=== PATIENT | female | born 1995 | race Caucasian/White ===

== ENCOUNTER 2016-11-03 11:03 | Day surgery (SDC) | payer BC, OTHER ==
--- NOTE | 2016-10-31 07:48 | HP ---
DATE OF SURGERY: 11/03/2016 ADMISSION DIAGNOSIS: Undesired fertility. ANTICIPATED PROCEDURE: Tubal ligation. HISTORY OF PRESENT ILLNESS: The patient is a 1, para 1, 21 year-old, four years since delivery and desires to not have any additional children at this time. She is very certain. A diagram concerning the procedure burning out a 2 cm distance in the distal tube of both left and right was discussed with her. Risk of recanalization 1 out of 200, 1 out of 300. PAST MEDICAL HISTORY: ALLERGIES: NONE. MEDICATIONS: Lexapro, Tetracycline. SOCIAL HISTORY: Half pack per day. ETOH occasionally. FAMILY HISTORY: Negative. REVIEW OF SYSTEMS: Negative. PHYSICAL EXAMINATION: VITAL SIGNS: Normal. CHEST: Clear. COR: Regular. ABDOMEN: No palpable organomegaly or mass. IMPRESSION: Undesired fertility. PLAN: Tubal ligation.
[~2016-11-03 11:03] MED LIST: BICITRA 30 ML CUP PO ONE; CEFAZOLIN 2 GM-D5W BAG** 50 ML IV SCH; Lactated Ringers 1,000 ML IV ONE; Lactated Ringers 1,000 ML IV SCH; Pepcid 20 MG VIAL IV ONE; Sensorcaine 0.25% 10 ML ONE
[2016-11-03] MEDS ORDERED: CEFAZOLIN 2 GM-D5W BAG** 50 ML IV ONE (11:25)
[2016-11-03] MEDS ORDERED: Lactated Ringers 1,000 ML IV ONE (11:25)
[2016-11-03] MEDS ORDERED: BICITRA 30 ML CUP ONE (11:25)
[2016-11-03] MEDS ORDERED: Pepcid 20 MG VIAL IV ONE (11:25)
[2016-11-03] MEDS ORDERED: Decadron 4 MG INJ IV ONE (14:03)
[2016-11-03] MEDS ORDERED: Zemuron 100 MG/10 ML IJ ONE (14:03)
[2016-11-03] MEDS ORDERED: DIPRIVAN 200 MG/20 ML IV ONE (14:03)
[2016-11-03] MEDS ORDERED: BLOXIVERZ IV ONE (14:03)
[2016-11-03] MEDS ORDERED: TORAdol 30 mg Injection IJ ONE (14:03)
[2016-11-03] MEDS ORDERED: SUBLIMAZE 100 MCG/2 ML IV ONE (14:03)
[2016-11-03] MEDS ORDERED: Quelicin Fliptop 200 MG/10 ML IJ ONE (14:03)
[2016-11-03] MEDS ORDERED: Robinul 0.4 MG/2 ML IV ONE (14:03)
[2016-11-03] MEDS ORDERED: DILAUDID 2 MG INJECTION IJ ONE (14:03)
[2016-11-03] MEDS ORDERED: Zofran 4 MG/2 ML VIAL IV ONE (14:03)
[2016-11-03] MEDS ORDERED: DILAUDID 2 MG INJECTION ONE (14:16)
[2016-11-03] MEDS ORDERED: TORAdol 30 mg Injection IV ONE (15:25)
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
[2016-11-03 16:02] VITALS: BP 100/69; PULSE 55; O2SAT 97
== END 2016-11-03 15:55 | disposition home or self-care (01) ==
LOC: SDC 11:03
PROVIDERS: ATTEND Surgery
PROC: 0UL74ZZ Occlusion of Bilateral Fallopian Tubes, Percutaneous Endoscopic Approach (ICD-10-PCS; principal; 2016-11-03)
DX: Z30.2 Encounter for sterilization (principal)
CPT/HCPCS: 00851; 84703; J0330; J0690; J1100; J1170; J1885; J2405; J2704; J2710; J3010

== ENCOUNTER 2016-11-05 19:24 | Emergency (ER) | payer BC, OTHER ==
[2016-11-05 19:56] VITALS: BP 102/66; PULSE 98; O2SAT 99
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
== END 2016-11-05 20:29 | disposition home or self-care (01) ==
LOC: ED 19:24
DX: Z48.01 Encounter for change or removal of surgical wound dressing (principal)
CPT/HCPCS: 99282

== ENCOUNTER 2017-07-12 18:05 | Emergency (ER) | payer BC ==
[2017-07-12 19:19] VITALS: BP 112/76; PULSE 96
[2017-07-12] MEDS ORDERED: Rocephin 1000 MG INJ IM ONE (20:20)
[2017-07-12] MEDS ORDERED: Rocephin 1000 MG INJ ONE (20:23)
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
[2017-07-12] MEDS ORDERED: SILVADENE 50 GM TP ONE ×2 (20:29→20:32)
[2017-07-12 20:42] VITALS: O2SAT 98
[2017-07-12] MEDS ORDERED: XYLOCAINE 1% HCL 20 ML MDV ONE (20:53)
== END 2017-07-12 20:43 ==
LOC: ED 18:05
DX: T24.112A Burn of first degree of left thigh, initial encounter (principal); T22.212A Burn of second degree of left forearm, initial encounter; T22.111A Burn of first degree of right forearm, initial encounter; X08.8XXA Exposure to other specified smoke, fire and flames, initial encounter
CPT/HCPCS: J0696; A9270-GY

== ENCOUNTER 2017-11-13 18:23 | Emergency (ER) | payer BC ==
[2017-11-13 18:45] VITALS: BP 131/75; PULSE 88; O2SAT 99
[2017-11-13] MEDS ORDERED: BACIGUENT PACKET ONE (19:07)
[2017-11-13] MEDS ORDERED: NORCO 5/325 MG ONE (19:08)
[2017-11-13] MEDS ORDERED: Adacel Vial IM ONE (19:08)
[2017-11-13] MEDS: Adacel Vial IM ONE (19:13)
[2017-11-13] MEDS: NORCO 5/325 MG PO ONE (19:14)
[2017-11-13] MEDS: BACIGUENT PACKET TP ONE (19:14)
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
== END 2017-11-13 19:39 | disposition home or self-care (01) ==
LOC: ED 18:23
PROC: 0HQFXZZ Repair Right Hand Skin, External Approach (ICD-10-PCS; principal; 2017-11-13)
DX: S61.011A Laceration without foreign body of right thumb without damage to nail, initial encounter (principal); W26.0XXA Contact with knife, initial encounter; M19.90 Unspecified osteoarthritis, unspecified site; F41.8 Other specified anxiety disorders; R73.03 Prediabetes; F31.9 Bipolar disorder, unspecified; F20.9 Schizophrenia, unspecified; Z72.0 Tobacco use
CPT/HCPCS: 12001; 90471; 90715; 99283; A9270-GY

== ENCOUNTER 2018-01-03 17:53 | Emergency (ER) | payer BC ==
[2018-01-03 18:07] VITALS: BP 118/73; PULSE 69; O2SAT 99
[2018-01-03] MEDS ORDERED: NORCO 5/325 MG PO ONE (18:08)
[2018-01-03] MEDS ORDERED: CLEOCIN 150 MG CAPSULE PO ONE (18:08)
[2018-01-03] MEDS ORDERED: CLEOCIN 150 MG CAPSULE ONE (18:11)
[2018-01-03] MEDS ORDERED: NORCO 5/325 MG ONE (18:11)
--- NOTE | 2018-01-03 18:13 | ERPHSYRPT ---
- History of Present Illness Time Seen by Provider: 01/03/18 18:09 Source: patient Exam Limitations: no limitations Patient Subjective Stated Complaint: pt here for infection to right hand after getting a tatoo to 3,4,5 digit , pt has open sores with small amt of draining Triage Nursing Assessment: pt alert, resp easy, skin w/d/p, pt has sores to right 3,4,5,digit Physician History: mild to mod constant ache pain at tatoo sites of the right hand since last week , pt utd, no allergy to norco, pt is right handed, +ulcers, no bleeding or drainage Allergies/Adverse Reactions: morphine Allergy (Verified 01/03/18 18:07) Penicillins Allergy (Verified 01/03/18 18:07) tramadol Allergy (Verified 01/03/18 18:07) Home Medications: Sertraline HCl [Sertraline HCl] 200 mg DAILY 11/13/17 [History] Hx Tetanus, Diphtheria Vaccination/Date Given: Yes Hx Influenza Vaccination/Date Given: No Hx Pneumococcal Vaccination/Date Given: No Immunizations Up to Date: Yes - Review of Systems Constitutional: No Fever Respiratory: No Dyspnea Neurological: No Dizziness - Past Medical History Pertinent Past Medical History: Yes Neurological History: Migraines Cardiac History: No Pertinent History Respiratory History: No Pertinent History Endocrine Medical History: Other Musculoskeletal History: Arthritis Psycho-Social History: Anxiety, Depression, Panic Disorder Other Medical History: PCOS, boarderline DM, bipolar,schizo - Past Surgical History Past Surgical History: No Female Surgical History: Tubal Ligation Other Surgical History: no surgery - Social History Smoking Status: Current every day smoker How long have you smoked: 6 Exposure to second hand smoke: Yes Drug Use: none Patient Lives Alone: No - Female History Hx Last Menstrual Period: nov Hx Now: No - Nursing Vital Signs Nursing Vital Signs: Initial Vital Signs Temperature 97.8 F 01/03/18 18:00 Pulse Rate 69 01/03/18 18:00 Respiratory Rate 20 01/03/18 18:00 Blood Pressure 118/73 01/03/18 18:00 O2 Sat by Pulse Oximetry 99 01/03/18 18:00 Pain Scale Pain Intensity 8 - Physical Exam General Appearance: no apparent distress Respiratory Exam: No respiratory distress Extremity Exam: other (tender shallow 1cm ulcers of dorsal mid phalanx digits 3 4 and 5 or the right hand, rom intact, apparent extension deformity, no streaks , sen and pulses intact) Neurologic Exam: alert, oriented x 3, cooperative Skin Exam: warm SpO2 Interpretation: normal SpO2: 99 Oxygen Delivery: Room Air - Course Nursing assessment & vital signs reviewed: Yes - Radiology Exams Hand X-ray Interpretation: Interpreted by me, Other (no fx, no osteo) Ordered Tests: Active Orders 24 hr Category Date Time Status HAND (MINIMUM 3 VIEWS) Stat Exams 01/03/18 18:28 Taken CBC W DIFF Stat Lab 01/03/18 18:25 Completed Medication Summary Discontinued Medications Generic Name Dose Route Start Last Admin Trade Name Freq PRN Reason Stop Dose Admin Hydrocodone Bitart/Acetaminophen 1 tab 01/03/18 18:08 01/03/18 18:12 [place] 5/325 Mg PO 01/03/18 18:09 1 tab STAT ONE Administration Hydrocodone Bitart/Acetaminophen Confirm 01/03/18 18:11 [place] 5/325 Mg Administered 01/03/18 18:12 Dose 1 tab .ROUTE .STK-MED ONE Clindamycin HCl 300 mg 01/03/18 18:08 01/03/18 18:12 [place] 150 Mg Capsule PO 01/03/18 18:09 300 mg STAT ONE Administration Clindamycin HCl Confirm 01/03/18 18:11 Cleocin 150 Mg Capsule Administered 01/03/18 18:12 Dose 300 mg .ROUTE .STK-MED ONE Lab/Rad Data: Laboratory Result Diagrams 01/03/18 18:25 Laboratory Results 01/03/18 Range/Units 18:25 WBC 5.2 (4.0-10.5) K/mm3 RBC 3.78 L (4.1-5.4) M/mm3 Hgb 12.3 (12.0-16.0) gm/dl Hct 37.6 (35-47) % MCV 99.5 (78-100) fl MCH 32.5 H (26-32) pg MCHC 32.7 (32-36) g/dl RDW 12.6 (11.5-14.0) % Plt Count 211 (150-450) K/mm3 MPV 9.1 (6-9.5) fl Gran % 53.6 (36.0-66.0) % Lymphocytes % 29.8 (24.0-44.0) % Monocytes % 12.0 (0.0-12.0) % Eosinophils % 4.4 (0.00-5.0) % Basophils % 0.2 (0.0-0.4) % Basophils # 0.01 (0-0.4) - Progress Progress: improved Progress Note: 01/03/18 18:[address] Zimmerman at 19:00 01/03/18 18:[address] Urvashi ortiz warnings given wound care zakia Will see patient in: office Counseled pt/family regarding: lab results, diagnosis, need for follow-up, rad results - Departure Time of Disposition: 18:44 Departure Disposition: Home Clinical Impression: Skin ulcer Qualifiers: Non-pressure ulcer stage: limited to breakdown of skin Qualified Code(s): L98.491 - Non-pressure chronic ulcer of skin of other sites limited to breakdown of skin Condition: Stable Critical Care Time: No Referrals: GAETANO CHOPRA NP [Primary Care Provider] - Additional Instructions: see Dr Urvashi ortiz return if worse Prescriptions: Clindamycin HCl 300 mg PO TID 10 Days #30 capsule Hydrocodone/APAP 5/325 [[place] 5/325 mg] 1 each PO Q4-6HPRN PRN #20 tablet MDD 3 PRN Reason: Pain
[2018-01-03 18:28] LABS: BASOPHIL % 0.2 % (0.0-0.4); Basophil (Absolute #) 0.01 (0-0.4); Eosinophil % 4.4 % (0.00-5.0); Eosinophil (Absolute #) 0.23 (0-0.5); Granulocyte Absolute (ANC) 2.81 (1.4-6.9); Granulocytes % 53.6 % (36.0-66.0); Hematocrit 37.6 % (35-47); Hemoglobin 12.3 gm/dl (12.0-16.0); Lymphocyte (Absolute #) 1.56 (1.0-4.6); Lymphocytes % 29.8 % (24.0-44.0); Mean Cell Volume 99.5 fl (78-100); Mean Corpuscular Hemoglobin 32.5 pg (26-32); Mean Corpuscular Hgb Concent. 32.7 g/dl (32-36); Mean Platelet Volume 9.1 fl (6-9.5); Monocyte (Absolute #) 0.63 (0.0-1.3); Platelet Count 211 K/mm3 (150-450); Red Blood Count 3.78 M/mm3 (4.1-5.4); Red Cell Distribution Width 12.6 % (11.5-14.0); White Blood Count 5.2 K/mm3 (4.0-10.5)
[2018-01-03] MEDS ORDERED: BACIGUENT PACKET ONE (19:12)
[2018-01-04] MEDS ORDERED: BACIGUENT PACKET TP ONE (07:11)
--- NOTE | 2018-01-04 08:36 | XRAY ---
Indication: 3/4/5 phalangeal pain. Comparison: None 3 views of the right hand demonstrates widening of the scaphoid lunate interval concerning for underlying ligamentous tear. No other bony, articular, or soft tissue abnormalities.
== END 2018-01-03 19:29 | disposition home or self-care (01) ==
LOC: ED 17:53
DX: L98.491 Non-pressure chronic ulcer of skin of other sites limited to breakdown of skin (principal)
CPT/HCPCS: 36415; 73130; 85025; 99284; A9270-GY

== ENCOUNTER 2018-08-01 16:59 | Emergency (ER) | payer BC, OTHER ==
[2018-08-01 17:19] VITALS: BP 105/73
[2018-08-01] MEDS ORDERED: Zithromax 250 MG TABLET PO ONE (17:29)
--- NOTE | 2018-08-01 17:35 | ERPHSYRPT ---
- History of Present Illness Time Seen by Provider: 08/01/18 17:15 Source: patient Exam Limitations: clinical condition Patient Subjective Stated Complaint: right ear and right side of throat hurts Triage Nursing Assessment: pt c/o of pain in right ear and right side of throat , hurts to swallow, swollen on the right side of throat, T 99.0, denies any other issues at this time Physician History: PATIENT COMPLAINS OF SORETHROAT, RIGHT FACIAL PAIN AND EARACHE WITH SWOLLEN GLANDS RIGHT SIDE OF NECK SINCE EARLIER THIS MORNING. DENIES FEVER, COUGH, DIFFICULTY BREATHING OR SWALLOWING. Timing/Duration: today Possible Cause: occasional episodes Modifying Factors: Improves With: nothing Associated Symptoms: earache, facial pain International travel in last 2 weeks: No Allergies/Adverse Reactions: morphine Allergy (Verified 08/01/18 17:19) Penicillins Allergy (Verified 08/01/18 17:19) tramadol Allergy (Verified 08/01/18 17:19) Home Medications: Sertraline HCl 200 mg PO DAILY 11/13/17 [History] Hx Tetanus, Diphtheria Vaccination/Date Given: Yes Hx Influenza Vaccination/Date Given: No Hx Pneumococcal Vaccination/Date Given: No - Review of Systems Constitutional: No Fever, No Chills Eyes: No Symptoms Ears, Nose, & Throat: Ear Pain, Throat Pain Respiratory: No Symptoms, No Cough, No Dyspnea Cardiac: No Symptoms, No Chest Pain, No Edema, No Syncope Abdominal/Gastrointestinal: No Symptoms, No Abdominal Pain, No Nausea, No Vomiting, No Diarrhea Genitourinary Symptoms: No Symptoms, No Dysuria Musculoskeletal: No Back Pain, No Neck Pain Skin: No Rash Neurological: No Dizziness, No Focal Weakness, No Sensory Changes Psychological: No Symptoms Endocrine: No Symptoms All Other Systems: Reviewed and Negative - Past Medical History Pertinent Past Medical History: Yes Neurological History: Migraines Cardiac History: No Pertinent History Respiratory History: No Pertinent History Endocrine Medical History: Other Musculoskeletal History: Arthritis Psycho-Social History: Anxiety, Depression, Panic Disorder Other Medical History: PCOS, boarderline DM, bipolar,schizo - Past Surgical History Past Surgical History: No Female Surgical History: Tubal Ligation Other Surgical History: no surgery - Social History Smoking Status: Current every day smoker How long have you smoked: 6 Exposure to second hand smoke: Yes Drug Use: none Patient Lives Alone: No - Female History Hx Last Menstrual Period: 07/20/2018 Hx Now: (tubal) - Nursing Vital Signs Nursing Vital Signs: Initial Vital Signs Temperature 99.0 F 08/01/18 17:07 Pulse Rate 90 08/01/18 17:07 Blood Pressure 105/73 08/01/18 17:07 O2 Sat by Pulse Oximetry 97 08/01/18 17:07 Pain Scale Pain Intensity 5 - Physical Exam General Appearance: no apparent distress, alert Eye Exam: PERRL/EOMI, eyes nml inspection Ears, Nose, Throat Exam: normal ENT inspection, TMs normal, pharynx normal, moist mucous membranes, TM abnormal (R), pharyngeal erythema Neck Exam: normal inspection, non-tender, supple, full range of motion Respiratory Exam: normal breath sounds, lungs clear, No respiratory distress Cardiovascular Exam: regular rate/rhythm, normal heart sounds Gastrointestinal/Abdomen Exam: No tenderness Back Exam: normal inspection, No CVA tenderness, No vertebral tenderness Extremity Exam: normal inspection, normal range of motion Neurologic Exam: alert, oriented x 3, cooperative, normal mood/affect, sensation nml, No motor deficits Skin Exam: normal color, warm, dry, No rash Lymphatic Exam: No adenopathy SpO2 Interpretation: normal SpO2: 97 Oxygen Delivery: Room Air Ordered Tests: Medication Summary Discontinued Medications Generic Name Dose Route Start Last Admin Trade Name Charlene PRN Reason Stop Dose Admin Azithromycin 500 mg 08/01/18 17:29 08/01/18 17:36 Zithromax 250 Mg Tablet PO 08/01/18 17:30 500 mg STAT ONE Administration Azithromycin Confirm 08/01/18 17:36 Zithromax 250 Mg Tablet Administered 08/01/18 17:37 Dose 500 mg .ROUTE .STK-MED ONE Lab/Rad Data: Laboratory Results 08/01/18 Range/Units 17:45 Group A Strep Antibody NEGATIVE (NEGATIVE) - Progress Progress Note: 08/01/18 18:15 ZITHROMAX 500MG ORALLY Counseled pt/family regarding: lab results, diagnosis, need for follow-up - Departure Time of Disposition: 18:20 Departure Disposition: Home Clinical Impression: ACUTE SINUSITIS, RIGHT OTITIS MEDIA Condition: Stable Critical Care Time: No Referrals: GAETANO CHOPRA NP [Primary Care Provider] - Additional Instructions: DRINK PLENTY OF FLUIDS. ANTIBIOTIC ZITHROMAX 250MG, 2 TABLETS DAY 1 THEN 1 TABLET DAILY FOR 4 DAYS. PERCOGESIC 1 TABLET EVERY 4-6 HOURS FOR PAIN. TAKE OVER THE COUNTER SALINE SPRAY EVERY 6 HOURS NEEDED. CONSULT YOUR PRIMARY CARE PROVIDER FOR FOLLOWUP IN 1 WEEK. Prescriptions: Acetaminophen/Diphenhydramine [Percogesic Extra Str Caplet] 1 each PO Q4-6HPRN PRN #14 tablet PRN Reason: Pain Azithromycin 250 mg [Zithromax 250 MG TABLET] 250 mg PO ZPACK #6 tablet
[2018-08-01] MEDS ORDERED: Zithromax 250 MG TABLET ONE (17:36)
[2018-08-01 17:57] VITALS: PULSE 81
[2018-08-01 18:21] VITALS: O2SAT 97
== END 2018-08-01 18:27 | disposition home or self-care (01) ==
LOC: ED 16:59
DX: J01.90 Acute sinusitis, unspecified (principal); H66.91 Otitis media, unspecified, right ear; M19.90 Unspecified osteoarthritis, unspecified site; E11.9 Type 2 diabetes mellitus without complications; F31.9 Bipolar disorder, unspecified; Z72.0 Tobacco use
CPT/HCPCS: 87651; 99283; A9270-GY

== ENCOUNTER 2018-09-25 11:26 | Emergency (ER) | payer BC, OTHER ==
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
[2018-09-25 11:49] VITALS: BP 112/70; PULSE 74; O2SAT 97
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
== END 2018-09-25 13:11 | disposition home or self-care (01) ==
LOC: ED 11:26
DX: S60.221A Contusion of right hand, initial encounter (principal); S63.91XA Sprain of unspecified part of right wrist and hand, initial encounter; W22.8XXA Striking against or struck by other objects, initial encounter; Y93.89 Activity, other specified
CPT/HCPCS: 73130; 99283

== ENCOUNTER 2019-06-02 07:42 | Emergency (ER) | payer BC ==
[2019-06-02 08:00] VITALS: O2SAT 97
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
[2019-06-02 09:27] VITALS: BP 98/69; PULSE 64
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
== END 2019-06-02 09:28 | disposition home or self-care (01) ==
LOC: ED 07:42
DX: S60.221A Contusion of right hand, initial encounter (principal); Y04.0XXA Assault by unarmed brawl or fight, initial encounter; Y93.9 Activity, unspecified
CPT/HCPCS: 73110; 73130; 99284

== ENCOUNTER 2019-06-24 17:14 | Emergency (ER) | payer BC ==
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
[2019-06-24] MEDS ORDERED: Zofran 4 MG/2 ML VIAL IV ONE (18:19)
[2019-06-24] MEDS ORDERED: DEMEROL 50 MG IV ONE (18:21)
[2019-06-24] MEDS ORDERED: Aldactone 25 MG PO ONE (18:22)
[2019-06-24 18:33] LABS: BASOPHIL % 0.1 % (0.0-0.4); Basophil (Absolute #) 0.01 (0-0.4); Eosinophil % 2.9 % (0.00-5.0); Eosinophil (Absolute #) 0.24 (0-0.5); Granulocyte Absolute (ANC) 4.72 (1.4-6.9); Granulocytes % 56.9 % (36.0-66.0); Hematocrit 37.4 % (35-47); Hemoglobin 12.8 gm/dl (12.0-16.0); Lymphocyte (Absolute #) 2.53 (1.0-4.6); Lymphocytes % 30.4 % (24.0-44.0); Mean Cell Volume 95.4 fl (78-100); Mean Corpuscular Hgb Concent. 34.2 g/dl (32-36); Mean Platelet Volume 9.4 fl (6-9.5); Monocyte (Absolute #) 0.81 (0.0-1.3); Monocytes % 9.7 % (0.0-12.0); Platelet Count 254 K/mm3 (150-450); Red Blood Count 3.92 M/mm3 (4.1-5.4); Red Cell Distribution Width 12.4 % (11.5-14.0); White Blood Count 8.3 K/mm3 (4.0-10.5)
[2019-06-24 18:35] VITALS: O2SAT 99
[2019-06-24] MEDS ORDERED: Zofran 4 MG/2 ML VIAL ONE (18:35)
[2019-06-24] MEDS ORDERED: DEMEROL 50 MG ONE (18:36)
[2019-06-24 18:38] LABS: Mean Corpuscular Hemoglobin 32.6 pg (26-32)
[2019-06-24 18:43] LABS: BLOOD UREA NITROGEN 12 mg/dL (7-17); CHLORIDE 107 mmol/L (98-107); Calcium 9.5 mg/dL (8.4-10.2); Carbon Dioxide 27 mmol/L (22-30); Creatinine 1 0.71 mg/dL (0.52-1.04); Glucose 76 mg/dL (74-106); Potassium 3.5 mmol/L (3.5-5.1); SODIUM 142 mmol/L (137-145)
[2019-06-24 20:48] LABS: Appearance CLOUDY (CLEAR); Bacteria MANY /HPF (NEGATIVE); Bilirubin NEGATIVE (NEGATIVE); Blood NEGATIVE Ery/ul (0-5); Epithelial Cells FEW /HPF (FEW); Glucose NEGATIVE (NEGATIVE); Ketones NEGATIVE (NEGATIVE); Leukocyte Esterase NEGATIVE (NEGATIVE); Mucus SLIGHT /HPF (NEGATIVE); Nitrite NEGATIVE (NEGATIVE); Protein,Urine Dip NEGATIVE (Negative); Specific Gravity 1.021 (1.005-1.025); Urobilinogen NEGATIVE mg/dL (0-1)
[2019-06-24] MEDS ORDERED: PERCOCET TABLET 5/325MG PO STA (21:02)
[2019-06-24] MEDS ORDERED: PERCOCET TABLET 5/325MG ONE (21:11)
[2019-06-24 21:17] VITALS: BP 107/65; PULSE 72
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
== END 2019-06-24 21:28 | disposition home or self-care (01) ==
LOC: ED 17:14
DX: T14.8XXA Other injury of unspecified body region, initial encounter (principal); V89.2XXA Person injured in unspecified motor-vehicle accident, traffic, initial encounter
CPT/HCPCS: 36000; 36415; 70450; 70486; 72192; 80048; 81001; 85025; 87086; 93005; 93041; 96374; 96375; 99284; J2175; J2405; A9270-GY

== ENCOUNTER 2019-09-06 22:30 | Emergency (ER) | payer BC ==
[2019-09-06 22:58] VITALS: BP 108/85; PULSE 91; O2SAT 97
[2019-09-06] MEDS ORDERED: TORAdol 30 mg Injection IM ONE (23:16)
[2019-09-06] MEDS ORDERED: BACTRIM DS TABLET PO STA (23:17)
--- NOTE | 2019-09-06 23:25 | ERPHSYRPT ---
- History of Present Illness Time Seen by Provider: 09/06/19 22:58 Source: patient Exam Limitations: no limitations Patient Subjective Stated Complaint: pt states that she has mass in her vagina, pt states that mass came 4 days ago, pt states that she can not sit or walk Triage Nursing Assessment: pt ambulated into the er, pt has 6/10 pain to vagina , no drainage present, abcess is located on rt side of vagina, mass is 4 cm x2 cm Physician History: 89 years old female presenting in the ER with chief complaint of right labial swelling for the last 4 days progressively worsening currently almost an almond size, moderate intensity sharp pain aggravation with walking/sitting/palpation. Denies any discharge. She has tried to squeeze it with no discharge at all. Denies any redness. No history of MRSA. Timing/Duration: day(s) (4) Quality: painful Severity: moderate Location: genitalia Possible Causes: no cause identified Associated Symptoms: swelling/mass/lumps Allergies/Adverse Reactions: morphine Allergy (Verified 09/06/19 22:58) Penicillins Allergy (Verified 09/06/19 22:58) tramadol Allergy (Verified 09/06/19 22:58) Home Medications: Paroxetine HCl 20 mg [Paxil 20 MG] 20 mg PO DAILY 06/02/19 [History] Phentermine HCl [Adipex-P] 37.5 mg PO DAILY 06/02/19 [History] Spironolactone 100 mg PO DAILY 06/02/19 [History] Hx Tetanus, Diphtheria Vaccination/Date Given: No Hx Influenza Vaccination/Date Given: No Hx Pneumococcal Vaccination/Date Given: No - Review of Systems Constitutional: No Symptoms, No Fever, No Chills Eyes: No Symptoms Respiratory: No Symptoms Cardiac: No Symptoms Abdominal/Gastrointestinal: No Symptoms Genitourinary Symptoms: No Incontinence, No Urgency, No Urinary Retention Musculoskeletal: No Symptoms Skin: No Symptoms, Skin Lesions Neurological: No Symptoms Psychological: No Symptoms Endocrine: No Symptoms - Past Medical History Pertinent Past Medical History: Yes Neurological History: No Pertinent History Cardiac History: No Pertinent History Respiratory History: No Pertinent History Endocrine Medical History: Other Musculoskeletal History: Fractures Psycho-Social History: Bipolar, Depression, Panic Disorder Other Medical History: HPV, PCOS - Past Surgical History Past Surgical History: Yes Cardiac: No Pertinent History Respiratory: No Pertinent History Gastrointestinal: No Pertinent History Genitourinary: No Pertinent History Musculoskeletal: No Pertinent History Female Surgical History: Tubal Ligation Other Surgical History: no surgery - Social History Smoking Status: Current every day smoker How long have you smoked: 10 years Exposure to second hand smoke: Yes Drug Use: none Patient Lives Alone: No - Female History Hx Now: No - Nursing Vital Signs Nursing Vital Signs: Initial Vital Signs Temperature 97.8 F 09/06/19 22:38 Pulse Rate 91 H 09/06/19 22:38 Respiratory Rate 15 09/06/19 22:38 Blood Pressure 108/85 09/06/19 22:38 O2 Sat by Pulse Oximetry 97 09/06/19 22:38 Pain Scale Pain Intensity 6 - Physical Exam General Appearance: no apparent distress Eye Exam: eyes nml inspection Ears, Nose, Throat Exam: normal ENT inspection Neck Exam: normal inspection, non-tender, supple, full range of motion Respiratory Exam: normal breath sounds, lungs clear Cardiovascular Exam: regular rate/rhythm, normal heart sounds Gastrointestinal/Abdomen Exam: soft, normal bowel sounds (spell and a the in and is being and and cool this and date A. yesterday and and and he is in in PERRLA EOMI and I are in and a), No tenderness Pelvic Exam: other (right lower labia anterior swelling 2x2cm . tender , no fluctuation, minimal induration. no swelling inside the vaginal wall.), No adnexal mass (I.) Back Exam: normal inspection, normal range of motion Extremity Exam: normal inspection Neurologic Exam: alert, oriented x 3, cooperative Skin Exam: normal color SpO2 Interpretation: normal SpO2: 97 O2 Delivery: Room Air Ordered Tests: Medication Summary Discontinued Medications Generic Name Dose Route Start Last Admin Trade Name Dylonq PRN Reason Stop Dose Admin Ketorolac Tromethamine 60 mg 09/06/19 23:16 Toradol 30 Mg Injection IM 09/06/19 23:17 STAT ONE Ketorolac Tromethamine Confirm 09/06/19 23:28 Toradol 30 Mg Injection Administered 09/06/19 23:29 Dose 60 mg .ROUTE .STK-MED ONE Trimethoprim/Sulfamethoxazole 1 tab 09/06/19 23:17 Bactrim Ds Tablet PO 09/06/19 23:18 STAT STA Trimethoprim/Sulfamethoxazole Confirm 09/06/19 23:28 Bactrim Ds Tablet Administered 09/06/19 23:29 Dose 1 tab PO .STK-MED ONE - Progress Progress: pain not gone completely Progress Note: 09/06/19 23:33 patient is developing labial abscess. I do not think she needs incision and drainage at this point. I would start her on Bactrim and ibuprofen.. Recommended outpatient followup. Discussed signs and symptoms of worsening needing return to ER which she seems understanding. Counseled pt/family regarding: need for follow-up - Departure Departure Disposition: Home Clinical Impression: Labial abscess Condition: Stable Critical Care Time: No Referrals: GAETANO CHOPRA NP [Primary Care Provider] - Follow Up with PCP/3 days Instructions: Skin Abscess, MRSA (DC) Additional Instructions: take Tylenol/ibuprofen as needed for pain. continue with antibiotics. Followup with primary care physician for reevaluation in 2-3days. Return to ER for any worsening. Prescriptions: Ibuprofen 600 mg PO Q6HPRN PRN 10 Days #20 tablet PRN Reason: Pain Smz/Tmp Ds Tablet [Bactrim Ds Tablet] 1 udtab PO BID #14 tablet
[2019-09-06] MEDS ORDERED: BACTRIM DS TABLET PO ONE (23:28)
[2019-09-06] MEDS ORDERED: TORAdol 30 mg Injection ONE (23:28)
== END 2019-09-06 23:52 | disposition home or self-care (01) ==
LOC: ED 22:30
DX: N76.4 Abscess of vulva (principal)
CPT/HCPCS: 96372; 99283; J1885; A9270-GY

== ENCOUNTER 2019-10-11 14:05 | Emergency (ER) | payer BC ==
[2019-10-11 15:09] VITALS: O2SAT 100
[2019-10-11 17:32] LABS: INFLUENZA A POSITIVE (NEGATIVE); INFLUENZA B NEGATIVE (NEGATIVE); RESPIRATORY SYNCTIAL VIRUS NEGATIVE (Negative)
--- NOTE | 2019-10-11 17:57 | ERPHSYRPT ---
- History of Present Illness Time Seen by Provider: 10/11/19 15:00 Source: patient Patient Subjective Stated Complaint: pt reports sore throat, body aches, cough and fever, pt reports s/s started yesterday. Triage Nursing Assessment: pt is aox3, pupils perrl, afebrile, resps easy and non labored, radial pulses strong and equal, cap refill < 3 seconds, pt skin pink warm dry. 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 Associated Symptoms: cough, nausea/vomiting Allergies/Adverse Reactions: morphine Allergy (Verified 10/11/19 15:10) Penicillins Allergy (Verified 10/11/19 15:10) tramadol Allergy (Verified 10/11/19 15:10) Home Medications: Paroxetine HCl 20 mg [Paxil 20 MG] 20 mg PO DAILY 06/02/19 [History] Phentermine HCl [Adipex-P] 37.5 mg PO DAILY 06/02/19 [History] Spironolactone 100 mg PO DAILY 06/02/19 [History] Hx Tetanus, Diphtheria Vaccination/Date Given: Yes Hx Influenza Vaccination/Date Given: No Hx Pneumococcal Vaccination/Date Given: No Immunizations Up to Date: Yes - Review of Systems Constitutional: Fever, Chills Ears, Nose, & Throat: No Symptoms Respiratory: Cough Cardiac: No Chest Pain, No Edema, No Syncope Abdominal/Gastrointestinal: Nausea, Vomiting, Diarrhea Genitourinary Symptoms: No Dysuria Musculoskeletal: Arthralgias, Back Pain, Myalgias Neurological: No Dizziness, No Focal Weakness, No Sensory Changes Psychological: No Symptoms Endocrine: No Symptoms All Other Systems: Reviewed and Negative - Past Medical History Pertinent Past Medical History: Yes Neurological History: No Pertinent History Cardiac History: No Pertinent History Respiratory History: No Pertinent History Endocrine Medical History: Other Musculoskeletal History: Fractures Psycho-Social History: Bipolar, Depression, Panic Disorder Other Medical History: HPV, PCOS - Past Surgical History Past Surgical History: Yes Cardiac: No Pertinent History Respiratory: No Pertinent History Gastrointestinal: No Pertinent History Genitourinary: No Pertinent History Musculoskeletal: No Pertinent History Female Surgical History: Tubal Ligation Other Surgical History: no surgery - Social History Smoking Status: Current every day smoker How long have you smoked: 10 years Exposure to second hand smoke: Yes Drug Use: none Patient Lives Alone: No - Female History Hx Last Menstrual Period: mirena Hx Now: No (tubal) - Nursing Vital Signs Nursing Vital Signs: Initial Vital Signs Temperature 98.2 F 10/11/19 14:59 Pulse Rate 60 10/11/19 14:59 Respiratory Rate 20 10/11/19 14:59 Blood Pressure 105/75 10/11/19 14:59 O2 Sat by Pulse Oximetry 100 10/11/19 14:59 Pain Scale Pain Intensity 6 - Physical Exam General Appearance: moderate distress, alert Eye Exam: PERRL/EOMI ENT Exam: normal ENT inspection, No pharyngeal erythema, No tonsillar exudate Neck Exam: supple, full range of motion, No meningismus Respiratory Exam: normal breath sounds, lungs clear, no respiratory distress Cardiovascular/Chest Exam: normal heart sounds, regular rate/rhythm, No murmur, No edema Gastrointestinal/Abdominal Exam: soft, non tender, no distention Extremity Exam: non-tender, normal range of motion, normal inspection, normal capillary refill Neurologic Exam: alert, oriented x 3, 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, 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, normal mood/affect, sensation nml, No motor deficits Skin Exam: normal color, warm, dry, No rash SpO2: 100 - Course Nursing assessment & vital signs reviewed: Yes Lab/Rad Data: Laboratory Results 10/11/19 Range/Units Unknown Influenza Type A Ag POSITIVE (NEGATIVE) Influenza Type B Ag NEGATIVE (NEGATIVE) RSV (PCR) NEGATIVE (Negative) - Progress Progress: improved - Departure Departure Disposition: Home Clinical Impression: Influenza A Condition: Stable Critical Care Time: No Referrals: GAETANO CHOPRA NP [Primary Care Provider] - Prescriptions: Oseltamivir 75 mg [Tamiflu 75MG Capsule] 75 mg PO DAILY 5 Days #10 cap
[2019-10-11 18:20] VITALS: BP 102/67; PULSE 72
== END 2019-10-11 18:12 | disposition home or self-care (01) ==
LOC: ED 14:05
DX: J11.1 Influenza due to unidentified influenza virus with other respiratory manifestations (principal)
CPT/HCPCS: 87631; 99283

== ENCOUNTER 2019-10-12 21:27 | Emergency (ER) | payer BC ==
--- NOTE | 2019-10-12 22:11 | ERPHSYRPT ---
- History of Present Illness Time Seen by Provider: 10/12/19 21:55 Source: patient Exam Limitations: no limitations Patient Subjective Stated Complaint: pt to ER with complaints of body aches and sore mouth/throat since last night. pt states she was here 2 days ago and diagnosed with flu A. pt states she passed out in the shower today. Triage Nursing Assessment: pt to ER with complaints of body aches and sore mouth /throat since last night. pt with lightheaded/dizziness all day. Physician History: pT WITH MOUTH SO SORE THAT SHE CAN NOT TOLERATE EVEN WATER OR EAT A SUCRET. pT WAS DIAGNOSED WITH fLU a ON sep AND SHE STATES THAT HAS A HIGH PAIN TOLERANCE BUT CAN NOT TOLERATE ANYTHING IN HER MOUTH SINCE AND PASSED OUT YESTERDAY IN THE SHOWER BECAUSE SHE HASN'T BEEN ABLE TO EAT. Severity: severe ENT Location: mouth, throat Modifying Factors: Improves With: other (anything in the mouth caused pain) Associated Symptoms: dizziness, poor fluid intake, poor solids intake, sore throat, difficulty swallowing, other (mouth pain) Allergies/Adverse Reactions: morphine Allergy (Verified 10/12/19 21:41) Penicillins Allergy (Verified 10/12/19 21:41) tramadol Allergy (Verified 10/12/19 21:41) Home Medications: Paroxetine HCl 20 mg [Paxil 20 MG] 20 mg PO DAILY 06/02/19 [History] Phentermine HCl [Adipex-P] 37.5 mg PO DAILY 06/02/19 [History] Spironolactone 100 mg PO DAILY 06/02/19 [History] Hx Tetanus, Diphtheria Vaccination/Date Given: Yes Hx Influenza Vaccination/Date Given: No Hx Pneumococcal Vaccination/Date Given: No Immunizations Up to Date: Yes - Review of Systems Constitutional: Fever, Fatigue, Lethargy, Malaise Eyes: No Symptoms Ears, Nose, & Throat: Ear Pain, Nose Congestion, Mouth Pain, Throat Pain, Throat Swelling, Hoarse Respiratory: Cough Cardiac: No Symptoms Abdominal/Gastrointestinal: Nausea, Vomiting, Diarrhea Genitourinary Symptoms: No Symptoms Musculoskeletal: Arthralgias, Myalgias Skin: No Symptoms Neurological: Dizziness, Headache, Lethargy Psychological: No Symptoms Endocrine: No Symptoms Hematologic/Lymphatic: No Symptoms All Other Systems: Reviewed and Negative - Past Medical History Pertinent Past Medical History: Yes Neurological History: No Pertinent History Cardiac History: No Pertinent History Respiratory History: No Pertinent History Endocrine Medical History: Other Musculoskeletal History: Fractures Psycho-Social History: Bipolar, Depression, Panic Disorder Other Medical History: HPV, PCOS - Past Surgical History Past Surgical History: Yes Cardiac: No Pertinent History Respiratory: No Pertinent History Gastrointestinal: No Pertinent History Genitourinary: No Pertinent History Musculoskeletal: No Pertinent History Female Surgical History: Tubal Ligation Other Surgical History: no surgery - Social History Smoking Status: Current every day smoker How long have you smoked: 10 years Exposure to second hand smoke: Yes Drug Use: none Patient Lives Alone: No - Female History Hx Now: No - Nursing Vital Signs Nursing Vital Signs: Initial Vital Signs Temperature 97.5 F 10/12/19 21:35 Pulse Rate 80 10/12/19 21:35 Respiratory Rate 18 10/12/19 21:35 Blood Pressure 177/78 10/12/19 21:35 O2 Sat by Pulse Oximetry 98 10/12/19 21:35 Pain Scale Pain Intensity 7 - Physical Exam General Appearance: no apparent distress, alert Eye Exam: bilateral eye: normal inspection, PERRL, EOMI Ear Exam: bilateral ear: auricle normal, canal normal, TM normal Nasal Exam: normal inspection, No active bleeding, No discharge Throat Exam: normal, moist mucus membranes (Pt has some white palquing on the anterior portion of the upper pallet. And pt may have had slight mucousal sloughing of one layer of the buccal mucousa on the right jaw and some irritaion -mild under the tongue. 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, normal mood/affect, nml cerebellar function Skin Exam: normal color, warm, dry, No rash SpO2 Interpretation: normal SpO2: 98 O2 Delivery: Room Air - Course Nursing assessment & vital signs reviewed: Yes Ordered Tests: Medication Summary Discontinued Medications Generic Name Dose Route Start Last Admin Trade Name Freq PRN Reason Stop Dose Admin Lidocaine HCl 20 ml 10/12/19 22:12 10/12/19 23:29 Xylocaine Viscous 2% 20 Ml Cup PO 10/12/19 22:13 20 ml STAT ONE Administration Lidocaine HCl Confirm 10/12/19 23:07 Xylocaine Hcl Viscous * Administered 10/12/19 23:08 Dose 20 ml .ROUTE .STK-MED ONE Nystatin 5 ml 10/13/19 10:00 10/12/19 23:30 Nystatin Suspension 60 Ml PO 11/12/19 09:59 5 ml QID PRETTY Administration Nystatin Confirm 10/12/19 23:19 Nystatin Suspension 60 Ml Administered 10/12/19 23:20 Dose 60 ml PO .STK-MED ONE Sucralfate 1,000 mg 10/12/19 22:13 10/12/19 23:30 Carafate Suspension 1000 Mg/10 Ml PO 10/12/19 22:14 1,000 mg STAT ONE Administration Lab/Rad Data: Laboratory Results 10/12/19 Range/Units 22:40 Group A Strep Antibody NEGATIVE (NEGATIVE) - Progress Progress: improved Progress Note: 10/13/19 09:22 Strep test was negative and pt was treated with Carafate and lidocaine viscous and nystatin suspension. She was improved and asing to be discharged. She was discharged with nystatin and carafate. - Departure Departure Disposition: Home Clinical Impression: Influenza A, Thrush, oral Condition: Stable Critical Care Time: No Referrals: GAETANO CHOPRA NP [Primary Care Provider] - Instructions: Thrush, Flu, Adult (DC) Additional Instructions: Continue and complete Tamiflu and take the Nystatin prescribed as well as carafate to help sooth your mouth pain. You may also benefit from Sucrets lozenges or Chloraseptic spray or ice/ slushy or smoothy type drinks. You may take tylenol for pain or fever. Return to the ER with emergent medical problems. Try drinking after the meds have helped the pain a bit. Prescriptions: Nystatin 60 ml [Nystatin SUSPENSION 60 ML] 2.5 ml PO 5XD 10 Days #200 ml Sucralfate 1000 mg/10 ml [Carafate SUSPENSION 1000 MG/10 ML] 1,000 mg PO ACHS #480 ml
[2019-10-12] MEDS ORDERED: XYLOCAINE VISCOUS 2% 20 ML CUP PO ONE (22:12)
[2019-10-12] MEDS ORDERED: Carafate SUSPENSION 1000 MG/10 ML PO ONE (22:13)
[2019-10-12] MEDS ORDERED: XYLOCAINE HCl Viscous ONE (23:07)
[2019-10-12] MEDS ORDERED: Nystatin SUSPENSION 60 ML PO ONE (23:19)
[2019-10-13] VITALS: O2SAT 98
[2019-10-13 00:21] VITALS: BP 131/86; PULSE 83
[2019-10-13] MEDS ORDERED: Nystatin SUSPENSION 60 ML PO SCH (10:00)
== END 2019-10-13 00:52 | disposition home or self-care (01) ==
LOC: ED 21:27
DX: J10.1 Influenza due to other identified influenza virus with other respiratory manifestations (principal); B37.0 Candidal stomatitis
CPT/HCPCS: 87651; 99283; A9270-GY

== ENCOUNTER 2019-10-20 00:55 | Emergency (ER) | payer BC, MEDICAID ==
[2019-10-20 01:23] VITALS: BP 116/72
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
[2019-10-20 01:38] VITALS: PULSE 69; O2SAT 98
== END 2019-10-20 01:37 | disposition home or self-care (01) ==
LOC: ED 00:55
DX: S51.811A Laceration without foreign body of right forearm, initial encounter (principal); W18.02XA Striking against glass with subsequent fall, initial encounter
CPT/HCPCS: 12002; 99283

== ENCOUNTER 2019-12-19 11:08 | Emergency (ER) | payer SELFPAY ==
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
[2019-12-19 11:48] VITALS: O2SAT 100
[2019-12-19 12:08] VITALS: BP 115/70; PULSE 64
== END 2019-12-19 12:11 | disposition home or self-care (01) ==
LOC: ED 11:08
DX: M46.1 Sacroiliitis, not elsewhere classified (principal); V89.2XXD Person injured in unspecified motor-vehicle accident, traffic, subsequent encounter
CPT/HCPCS: 99283

== ENCOUNTER 2020-06-05 23:05 | Emergency (ER) | payer SELFPAY ==
[2012-10-05 09:56] VITALS: BP 116/63
== END 2020-06-05 23:06 | disposition left against medical advice (07) ==
LOC: ED 23:05
DX: N23 Unspecified renal colic (principal)
CPT/HCPCS: 99281; G0463

== ENCOUNTER 2024-09-21 16:00 | Emergency (ER) | payer OTHER ==
[2024-09-21 16:07] VITALS: BP 132/75; PULSE 92; RESP 16; TEMP 97.5; O2SAT 100
== END 2024-09-21 16:31 | disposition left against medical advice (07) ==
LOC: ED 16:00
DX: Z53.21 Procedure and treatment not carried out due to patient leaving prior to being seen by health care provider (principal)
CPT/HCPCS: 99281